=== PATIENT | female | born 1950 | race Caucasian/White ===

== ENCOUNTER 2019-03-31 08:27 | Inpatient (IN) | payer MEDICAID, MEDICARE ==
[~2019-03-31] VITALS: Ht 170.2 cm; Wt 72.7 kg
--- NOTE | 2019-03-31 08:56 | NUR ---
PT HAD BEDBUGS IN HER HOUSE AND HAD IT SPRAYED, NO VISIBLE BED BUGS OR ANY BUG VISUALIZED ON PT OR HER CLOTHES, EMS REPORTS PT HAS BITES AND RED PREM/BITES VISUALIZED BY RN, RADHA OLVIER CONTACTED AND NO NEED TO HAVE ECOLAB IF NO VISIBLE BEDBUGS, WILL NOTIFY EVS PRECAUTION, CAUTION CART PLACED OUTSIDE PT ROOM.
--- NOTE | 2019-03-31 09:47 | NUR ---
CALLED LIZZY TA [facility] WORKER [phone] LEFT MESSAGE
--- NOTE | 2019-03-31 10:08 | NUR ---
LIZZY PT [facility] WORKER STATES SHE NEEDS TO GET ACCESS TO A LOWER CAR AND WILL COME GET PT IN APPROX 30-45 MIN
[2019-03-31] MEDS ORDERED: MYCOL30CR TP (10:16)
[2019-03-31] MEDS ORDERED: acetaminophen 325mg tablet PO ONE (11:10)
--- NOTE | 2019-03-31 11:27 | NUR ---
PT [facility] WORKER LIZZY AT BEDSIDE, DISCUSSED PT LIVING AND HOME CARE ASSIST SITUATION, PAGED SPECIAL EDUCATION ITINERANT TEACHER TO CONSULT.
--- NOTE | 2019-03-31 11:29 | NUR ---
JANEY WITH SOCIAL SERVICE TO COME EVALUATE PT.
[2019-03-31] MEDS ORDERED: LORazepam 1 MG tablet PO ONE (11:30)
[2019-03-31] MEDS ORDERED: ondansetron 4mg rapidly disintigrating tab PO ONE (11:30)
--- NOTE | 2019-03-31 11:39 | NUR ---
MELODY WITH INFECTION CONTROL EVALUATED THE ONE BUG FOUND ON [facility] FOR EVALATION. PT 2 PERSON ASSISTED BACK INTO BED, PT LYING IN POSITION OF COMFORT
--- NOTE | 2019-03-31 12:44 | NUR ---
PT EVALUATION PER CASE MANAGEMENT, WILL PAGE WITH CM WHEN PT EVAL COMPLETE, ADMIT OR DISCHARGE HOME
--- NOTE | 2019-03-31 13:09 | NUR ---
PHYSICAL THERAPY AT BEDSIDE FOR EVALUATION NOW.
--- NOTE | 2019-03-31 13:21 | NUR ---
NAOMI PT FAMILY MEMBER CALLED BACK STATES SHE IS AT WORK W# [phone] AND C# [phone], PAGED SIZE MARKER THEY WERE TRYING TO CONTACT HER TO DISCUSS PT CASE.
--- NOTE | 2019-03-31 13:38 | NUR ---
CALLED CONTRERAS LOPEZ, SHE WILL CALL JEANINE NOW REGARDING ADMISSION CAN NOT DISCHARGE HOME SAFELY
[2019-03-31] MEDS ORDERED: potassium Cl 40MEQ/NS 500ml 500 ML IV PRN (13:55)
[2019-03-31] MEDS ORDERED: magnesium 2GM in 50ml NS 50 ML IV PRN (13:55)
[2019-03-31] MEDS ORDERED: magnesium Cl slow-release 64mg tablet PO PRN (13:55)
[2019-03-31] MEDS ORDERED: magnesium 4gm in 100ml NS 100 ML IV PRN (13:55)
[2019-03-31] MEDS ORDERED: potassium Cl 20 mEq SR tablet PO PRN ×2 (13:55)
[2019-03-31] MEDS ORDERED: ondansetron/PF 4mg/2ml inj IV PRN (13:55)
[2019-03-31] MEDS ORDERED: potassium CL 10mEq/100ml bag 100 ML IV PRN (13:55)
[2019-03-31] MEDS ORDERED: acetaminophen 325mg tablet PO PRN (13:55)
[2019-03-31] MEDS ORDERED: LORA10TA7 PO (14:01)
[2019-03-31] MEDS ORDERED: PHEN100C12 PO (14:01)
--- NOTE | 2019-03-31 14:28 | NUR ---
picc line nurse coming to start a line for patient.
--- NOTE | 2019-03-31 15:03 | NUR ---
picc line nurse in room working on getting iv for the pt.
--- NOTE | 2019-03-31 15:44 | NUR ---
REVIEWED PT CHART WITH HEIKE OCASIO, NO NEED FROM ED PERSPECTIVE FOR LABS, MORNING LABS TO BE DRAWN FROM PT EXTENDED LINE THAT WAS PLACED BY PICC NURSE, WILL RELAY INFO TO LEE PANDEY RECEIVING PT ON ORTHO/NEURO PT TO BE IN BED 4015A, WAITING CALL BACK FROM RN TO GIVE SBAR REPORT
--- NOTE | 2019-03-31 15:50 | NUR ---
PICC NURSE PLACED EXTENDED LINE IN RIGHT UPPER ARM
--- NOTE | 2019-03-31 16:03 | NUR ---
CALLED DR GROVER INFORMED OF YEAST INFECTION UNDER LEFT BREAST, DR GROVER TO COME EVALUATE PT, JENNAE SBAR REPORT TO LEE BUT PT WILL BE MOVED TO ANOTHER ROOM
--- NOTE | 2019-03-31 16:06 | NUR ---
[facility] HOSPITALIST AT BEDSIDE FOR EVALUATION NOW.
--- NOTE | 2019-03-31 16:13 | NUR ---
PT IS GOING TO BED 4006A, PATIENT COORDINATOR UPDATED, REGISTRATION NOTIFIED PT GOING TO FLOOR
[2019-03-31 16:49] VITALS: BP 115/66
[2019-03-31] MEDS: docusate sod 100mg capsule PO SCH (19:59)
--- NOTE | 2019-03-31 21:34 | NUR ---
Patient in room ORTHO 4006. I have received report from KATHERIN Gudino and had the opportunity to ask questions and assume patient care. Addendum: 03/31/19 at 2135 by Alivia Horvath RN Amended: Links added.
[2019-03-31 23:06] VITALS: BP 110/63
--- NOTE | 2019-04-01 06:32 | NUR ---
Problems reprioritized. Patient report given, questions answered & plan of care reviewed with KATHERIN Barrios. Addendum: 04/01/19 at 0632 by Alivia Horvath RN Amended: Links added.
[2019-04-01] MEDS: docusate sod 100mg capsule PO SCH ×2 (08:00→19:00)
[2019-04-01] MEDS: K and/or MAG REPLACEMENT MC SCH (08:00)
[2019-04-01 09:00] LABS: BASOPHILS # (AUTO) 0.1 X10'3 (0-0.2); EOSINOPHILS # (AUTO) 0.2 X10'3 (0-0.9); HEMOGLOBIN 13.6 g/dl (12.0-16.0); MEAN PLATELET VOLUME 8.8 FL (7.4-10.4); MONOCYTES # (AUTO) 0.6 X10'3 (0-0.9); NEUTROPHILS # (AUTO) 5.8 X10'3 (1.8-7.7); RED CELL DISTRIBUTION WIDTH 13.2 % (11.5-14.5); WHITE BLOOD COUNT 7.7 X10'3 (4.5-11.0)
[2019-04-01 09:01] LABS: EOSINOPHILS % (AUTO) 2.4 % (0-6); HEMATOCRIT 40.4 % (35.0-45.0); LYMPHOCYTES # (AUTO) 0.9 X10'3 (1.1-4.8); LYMPHOCYTES % (AUTO) 11.9 % (21-51); MEAN CORPUSCULAR HEMOGLOBIN 31.3 PG (27.0-31.0); MEAN CORPUSCULAR HGB CONC 33.7 g/dL (33.0-36.5); MEAN CORPUSCULAR VOLUME 92.8 FL (78-98); MONOCYTES % (AUTO) 8.4 % (2-12); NEUTROPHILS % (AUTO) 76.3 % (42-75); PLATELET COUNT 207 X10'3 (140-440); RED BLOOD COUNT 4.36 X10'6 (4.20-5.60)
[2019-04-01 09:13] LABS: ALBUMIN 3.2 G/DL (3.4-5.0); ANION GAP 7 (8-16); BLOOD UREA NITROGEN 10 MG/DL (7-18); BUN/CREATININE RATIO 17.2 (6.6-38.0); CALCIUM 8.6 MG/DL (8.5-10.1); CHLORIDE 105 MMOL/L (99-107); CREATININE 0.58 MG/DL (0.40-0.90); GLUCOSE 169 MG/DL (70-104); PHENYTOIN (DILANTIN) 4.4 UG/ML (10.0-20.0); POTASSIUM 3.7 MMOL/L (3.5-5.1); SODIUM 137 MMOL/L (135-145); TOTAL CARBON DIOXIDE 25.2 MMOL/L (24-32); eGFR > 90 ML/MIN
[2019-04-01] MEDS: acetaminophen 325mg tablet PO PRN (16:39)
[2019-04-01 18:00] VITALS: BP 112/55
--- NOTE | 2019-04-01 18:05 | NUR ---
Patient in room ORTHO 4006. I have received report from Sophie PANDEY and had the opportunity to ask questions and assume patient care.
[2019-04-01 21:00] VITALS: BP 127/62
[2019-04-01] MEDS: phenytoin sod ER 100mg capsule PO SCH (21:21)
[2019-04-02 06:00] VITALS: BP 127/75
--- NOTE | 2019-04-02 06:08 | NUR ---
RECEIVED REPORT FROM KATHERIN SARABIA
[2019-04-02 06:22] LABS: BASOPHILS # (AUTO) 0.1 X10'3 (0-0.2); BASOPHILS % (AUTO) 1.2 % (0-1); EOSINOPHILS # (AUTO) 0.3 X10'3 (0-0.9); EOSINOPHILS % (AUTO) 5.2 % (0-6); HEMATOCRIT 38.9 % (35.0-45.0); HEMOGLOBIN 13.4 g/dl (12.0-16.0); LYMPHOCYTES # (AUTO) 1.4 X10'3 (1.1-4.8); LYMPHOCYTES % (AUTO) 22.9 % (21-51); MEAN CORPUSCULAR HEMOGLOBIN 31.7 PG (27.0-31.0); MEAN CORPUSCULAR HGB CONC 34.3 g/dL (33.0-36.5); MEAN CORPUSCULAR VOLUME 92.3 FL (78-98); MEAN PLATELET VOLUME 8.8 FL (7.4-10.4); MONOCYTES # (AUTO) 0.6 X10'3 (0-0.9); MONOCYTES % (AUTO) 9.4 % (2-12); NEUTROPHILS # (AUTO) 3.7 X10'3 (1.8-7.7); NEUTROPHILS % (AUTO) 61.3 % (42-75); PLATELET COUNT 186 X10'3 (140-440); RED BLOOD COUNT 4.22 X10'6 (4.20-5.60)
--- NOTE | 2019-04-02 06:27 | NUR ---
Problems reprioritized. Patient report given, questions answered & plan of care reviewed with Fariba PANDEY.
[2019-04-02 06:42] LABS: ANION GAP 8 (8-16); BLOOD UREA NITROGEN 10 MG/DL (7-18); BUN/CREATININE RATIO 18.2 (6.6-38.0); CALCIUM 8.3 MG/DL (8.5-10.1); CHLORIDE 106 MMOL/L (99-107); CREATININE 0.55 MG/DL (0.40-0.90); GLUCOSE 146 MG/DL (70-104); MAGNESIUM 2.1 MG/DL (1.5-2.4); SODIUM 140 MMOL/L (135-145); TOTAL CARBON DIOXIDE 25.7 MMOL/L (24-32); eGFR > 90 ML/MIN
[2019-04-02] MEDS ORDERED: Permethrin Cream 60gm TP ONE (07:35)
[2019-04-02] MEDS ORDERED: Permethrin 1% 59ml topical rinse TP ONE (07:35)
[2019-04-02] MEDS: K and/or MAG REPLACEMENT MC SCH (08:00)
[2019-04-02] MEDS: Ivermectin 3mg tablet PO SCH (08:23)
[2019-04-02] MEDS: nystatin 15 GM powder TP SCH ×3 (08:23→20:32)
[2019-04-02] MEDS: docusate sod 100mg capsule PO SCH ×2 (08:23→20:30)
[2019-04-02] MEDS: acetaminophen 325mg tablet PO PRN (09:36)
[2019-04-02 10:00] VITALS: BP 127/82
[2019-04-02 18:00] VITALS: BP 119/77
--- NOTE | 2019-04-02 18:25 | NUR ---
gave report to alonzo patricia
[2019-04-02] MEDS ORDERED: docusate sod 100mg capsule PO SCH (20:00)
[2019-04-02] MEDS: phenytoin sod ER 100mg capsule PO SCH (20:31)
[2019-04-02] MEDS: polyethylene glycol 3350 17gm powd pack PO SCH (20:32)
[2019-04-02 22:00] VITALS: BP 126/68
[2019-04-03 06:00] VITALS: BP 137/87
[2019-04-03 06:19] LABS: BASOPHILS # (AUTO) 0.1 X10'3 (0-0.2); BASOPHILS % (AUTO) 1.2 % (0-1); EOSINOPHILS # (AUTO) 0.3 X10'3 (0-0.9); EOSINOPHILS % (AUTO) 5.9 % (0-6); HEMATOCRIT 41.2 % (35.0-45.0); HEMOGLOBIN 14.2 g/dl (12.0-16.0); LYMPHOCYTES # (AUTO) 1.1 X10'3 (1.1-4.8); LYMPHOCYTES % (AUTO) 20.4 % (21-51); MEAN CORPUSCULAR HEMOGLOBIN 31.9 PG (27.0-31.0); MEAN CORPUSCULAR HGB CONC 34.5 g/dL (33.0-36.5); MEAN CORPUSCULAR VOLUME 92.6 FL (78-98); MEAN PLATELET VOLUME 8.5 FL (7.4-10.4); MONOCYTES # (AUTO) 0.5 X10'3 (0-0.9); MONOCYTES % (AUTO) 9.8 % (2-12); NEUTROPHILS # (AUTO) 3.5 X10'3 (1.8-7.7); NEUTROPHILS % (AUTO) 62.7 % (42-75); PLATELET COUNT 222 X10'3 (140-440); RED BLOOD COUNT 4.45 X10'6 (4.20-5.60); RED CELL DISTRIBUTION WIDTH 13.1 % (11.5-14.5); WHITE BLOOD COUNT 5.6 X10'3 (4.5-11.0)
--- NOTE | 2019-04-03 06:35 | NUR ---
Patient in room ORTHO 4006. I have received report from Erendira PANDEY and had the opportunity to ask questions and assume patient care.
[2019-04-03 06:42] LABS: ALBUMIN 3.1 G/DL (3.4-5.0); ANION GAP 7 (8-16); BLOOD UREA NITROGEN 9 MG/DL (7-18); CALCIUM 9.1 MG/DL (8.5-10.1); CHLORIDE 105 MMOL/L (99-107); GLUCOSE 103 MG/DL (70-104); MAGNESIUM 2.2 MG/DL (1.5-2.4); POTASSIUM 4.5 MMOL/L (3.5-5.1); SODIUM 138 MMOL/L (135-145); TOTAL CARBON DIOXIDE 26.3 MMOL/L (24-32); eGFR > 90 ML/MIN
[2019-04-03] MEDS: K and/or MAG REPLACEMENT MC SCH (08:00)
[2019-04-03] MEDS: docusate sod 100mg capsule PO SCH ×2 (08:36→20:16)
[2019-04-03] MEDS: nystatin 15 GM powder TP SCH ×3 (08:37→20:18)
[2019-04-03 10:00] VITALS: BP 136/76
[2019-04-03 18:00] VITALS: BP 118/63
--- NOTE | 2019-04-03 18:06 | NUR ---
Problems reprioritized. Patient report given, questions answered & plan of care reviewed with Erendira PANDEY.
[2019-04-03] MEDS: polyethylene glycol 3350 17gm powd pack PO SCH (20:16)
[2019-04-03] MEDS: phenytoin sod ER 100mg capsule PO SCH (20:16)
[2019-04-03 22:00] VITALS: BP 118/65
[2019-04-04] MEDS: acetaminophen 325mg tablet PO PRN (05:01)
[2019-04-04 06:00] VITALS: BP 106/63
[2019-04-04 06:00] LABS: BASOPHILS # (AUTO) 0.1 X10'3 (0-0.2); EOSINOPHILS # (AUTO) 0.3 X10'3 (0-0.9); HEMOGLOBIN 13.1 g/dl (12.0-16.0); MEAN CORPUSCULAR HEMOGLOBIN 31.8 PG (27.0-31.0); MONOCYTES # (AUTO) 0.6 X10'3 (0-0.9); RED BLOOD COUNT 4.11 X10'6 (4.20-5.60); RED CELL DISTRIBUTION WIDTH 13.4 % (11.5-14.5)
[2019-04-04 06:03] LABS: BASOPHILS % (AUTO) 2.3 % (0-1); EOSINOPHILS % (AUTO) 6.2 % (0-6); HEMATOCRIT 38.9 % (35.0-45.0); LYMPHOCYTES # (AUTO) 1.4 X10'3 (1.1-4.8); LYMPHOCYTES % (AUTO) 27.7 % (21-51); MEAN CORPUSCULAR HGB CONC 33.6 g/dL (33.0-36.5); MEAN CORPUSCULAR VOLUME 94.6 FL (78-98); MEAN PLATELET VOLUME 8.6 FL (7.4-10.4); NEUTROPHILS # (AUTO) 2.7 X10'3 (1.8-7.7); NEUTROPHILS % (AUTO) 52.8 % (42-75); PLATELET COUNT 210 X10'3 (140-440); WHITE BLOOD COUNT 5.2 X10'3 (4.5-11.0)
--- NOTE | 2019-04-04 06:20 | NUR ---
Problems reprioritized. Patient report given, questions answered & plan of care reviewed with Екатерина PANDEY.
--- NOTE | 2019-04-04 06:27 | NUR ---
Patient in room ORTHO 4006. I have received report from Erendira PANDEY and had the opportunity to ask questions and assume patient care.
[2019-04-04 06:32] LABS: ALBUMIN 2.8 G/DL (3.4-5.0); ANION GAP 8 (8-16); BLOOD UREA NITROGEN 20 MG/DL (7-18); BUN/CREATININE RATIO 30.8 (6.6-38.0); CHLORIDE 103 MMOL/L (99-107); CREATININE 0.65 MG/DL (0.40-0.90); GLUCOSE 142 MG/DL (70-104); MAGNESIUM 2.1 MG/DL (1.5-2.4); POTASSIUM 4.5 MMOL/L (3.5-5.1); SODIUM 135 MMOL/L (135-145); TOTAL CARBON DIOXIDE 23.9 MMOL/L (24-32); eGFR 90 ML/MIN
[2019-04-04] MEDS: docusate sod 100mg capsule PO SCH ×2 (08:00→21:01)
[2019-04-04] MEDS: K and/or MAG REPLACEMENT MC SCH (08:00)
[2019-04-04] MEDS: nystatin 15 GM powder TP SCH ×3 (08:14→21:01)
[2019-04-04 10:00] VITALS: BP 108/57
[2019-04-04 18:00] VITALS: BP 136/78
--- NOTE | 2019-04-04 18:07 | NUR ---
Problems reprioritized. Patient report given, questions answered & plan of care reviewed with Pat RN.
[2019-04-04] MEDS: phenytoin sod ER 100mg capsule PO SCH (21:00)
[2019-04-04] MEDS: polyethylene glycol 3350 17gm powd pack PO SCH (21:00)
[2019-04-04 22:30] VITALS: BP 127/67
[2019-04-05 06:00] VITALS: BP 103/69
[2019-04-05 06:25] LABS: BASOPHILS # (AUTO) 0.1 X10'3 (0-0.2); EOSINOPHILS # (AUTO) 0.3 X10'3 (0-0.9); LYMPHOCYTES # (AUTO) 1.4 X10'3 (1.1-4.8); MEAN CORPUSCULAR VOLUME 93.5 FL (78-98); MONOCYTES # (AUTO) 0.5 X10'3 (0-0.9); NEUTROPHILS # (AUTO) 2.7 X10'3 (1.8-7.7)
[2019-04-05 06:29] LABS: BASOPHILS % (AUTO) 1.8 % (0-1); EOSINOPHILS % (AUTO) 6.9 % (0-6); HEMATOCRIT 39.9 % (35.0-45.0); HEMOGLOBIN 13.5 g/dl (12.0-16.0); LYMPHOCYTES % (AUTO) 28.1 % (21-51); MEAN CORPUSCULAR HEMOGLOBIN 31.5 PG (27.0-31.0); MEAN CORPUSCULAR HGB CONC 33.7 g/dL (33.0-36.5); MEAN PLATELET VOLUME 8.5 FL (7.4-10.4); MONOCYTES % (AUTO) 9.3 % (2-12); NEUTROPHILS % (AUTO) 53.9 % (42-75); PLATELET COUNT 242 X10'3 (140-440); RED BLOOD COUNT 4.27 X10'6 (4.20-5.60); RED CELL DISTRIBUTION WIDTH 13.3 % (11.5-14.5)
[2019-04-05 06:31] LABS: ANION GAP 6 (8-16); BLOOD UREA NITROGEN 14 MG/DL (7-18); BUN/CREATININE RATIO 23.3 (6.6-38.0); CALCIUM 9.3 MG/DL (8.5-10.1); CHLORIDE 103 MMOL/L (99-107); GLUCOSE 139 MG/DL (70-104); MAGNESIUM 2.2 MG/DL (1.5-2.4); POTASSIUM 4.4 MMOL/L (3.5-5.1); SODIUM 135 MMOL/L (135-145); TOTAL CARBON DIOXIDE 26.3 MMOL/L (24-32); eGFR > 90 ML/MIN
--- NOTE | 2019-04-05 06:42 | NUR ---
Received report from Dipti PANDEY
[2019-04-05] MEDS: docusate sod 100mg capsule PO SCH ×2 (08:00→19:46)
[2019-04-05] MEDS: K and/or MAG REPLACEMENT MC SCH (08:00)
[2019-04-05] MEDS: nystatin 15 GM powder TP SCH ×3 (08:24→20:28)
[2019-04-05 08:49] VITALS: BP 103/69
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
[2019-04-05 18:30] VITALS: BP 125/60
[2019-04-05] MEDS: polyethylene glycol 3350 17gm powd pack PO SCH (20:26)
[2019-04-05] MEDS: phenytoin sod ER 100mg capsule PO SCH (20:28)
[2019-04-05 22:00] VITALS: BP 108/72
--- NOTE | 2019-04-06 06:27 | NUR ---
Received report from Devin PANDEY
--- NOTE | 2019-04-06 06:31 | NUR ---
Problems reprioritized. Patient report given, questions answered & plan of care reviewed with SINDHU. Addendum: 04/06/19 at 0632 by Adalberto Chapin RN Amended: Links added.
[2019-04-06 06:32] VITALS: BP 116/63
[2019-04-06] MEDS: docusate sod 100mg capsule PO SCH ×2 (07:37→20:06)
[2019-04-06] MEDS: K and/or MAG REPLACEMENT MC SCH (08:00)
[2019-04-06] MEDS: nystatin 15 GM powder TP SCH ×3 (08:06→20:06)
[2019-04-06 10:26] VITALS: BP 103/60
[2019-04-06 18:00] VITALS: BP 110/60
[2019-04-06] MEDS: phenytoin sod ER 100mg capsule PO SCH (20:05)
[2019-04-06] MEDS: polyethylene glycol 3350 17gm powd pack PO SCH (20:06)
[2019-04-06 21:44] VITALS: BP 110/72
[2019-04-07 05:00] VITALS: BP 115/62
[2019-04-07] MEDS: K and/or MAG REPLACEMENT MC SCH (08:00)
[2019-04-07] MEDS: nystatin 15 GM powder TP SCH ×3 (09:55→20:40)
[2019-04-07] MEDS: docusate sod 100mg capsule PO SCH ×2 (09:55→20:39)
[2019-04-07 10:00] VITALS: BP 105/66
--- NOTE | 2019-04-07 17:56 | NUR ---
VS stable throughout the day. Pt out of bed and ambulated this shift. Had large BM. Awaiting another treatment for lice before discharge/transfer. CM currently looking for placement.
[2019-04-07 18:00] VITALS: BP 124/74
--- NOTE | 2019-04-07 18:26 | NUR ---
Problems reprioritized. Patient report given, questions answered & plan of care reviewed with KATHERIN Wade.
[2019-04-07] MEDS: phenytoin sod ER 100mg capsule PO SCH (20:40)
[2019-04-07] MEDS: polyethylene glycol 3350 17gm powd pack PO SCH (20:40)
[2019-04-07 22:00] VITALS: BP 112/68
[2019-04-07] MEDS: acetaminophen 325mg tablet PO PRN (23:29)
--- NOTE | 2019-04-08 06:35 | NUR ---
Patient in room ORTHO 4006. I have received report from Sheri PANDEY and had the opportunity to ask questions and assume patient care.
[2019-04-08 07:09] VITALS: BP 138/71
[2019-04-08] MEDS: K and/or MAG REPLACEMENT MC SCH (08:00)
[2019-04-08] MEDS: docusate sod 100mg capsule PO SCH ×2 (09:38→20:13)
[2019-04-08] MEDS: nystatin 15 GM powder TP SCH ×3 (09:38→20:16)
[2019-04-08 11:00] VITALS: BP 107/57
[2019-04-08] MEDS ORDERED: Permethrin Cream 60gm TP ONE (13:45)
[2019-04-08] MEDS ORDERED: Permethrin 1% 59ml topical rinse TP ONE (13:45)
--- NOTE | 2019-04-08 17:42 | NUR ---
Hair washed with lice cream and rinsed after 10 minutes. Body covered with scabies/bed bug cream at 1700. To be removed at 0500 7/4. New gown, socks, and mesh panties placed on pt. PICC line dressing change.
[2019-04-08 18:00] VITALS: BP 133/59
--- NOTE | 2019-04-08 18:18 | NUR ---
Problems reprioritized. Patient report given, questions answered & plan of care reviewed with Erendira PANDEY.
--- NOTE | 2019-04-08 18:20 | NUR ---
Patient in room ORTHO 4006. I have received report from Clyde PANDEY and had the opportunity to ask questions and assume patient care.
[2019-04-08] MEDS: phenytoin sod ER 100mg capsule PO SCH (20:13)
[2019-04-08] MEDS: polyethylene glycol 3350 17gm powd pack PO SCH (20:13)
[2019-04-08 22:00] VITALS: BP 106/57
[2019-04-09 06:00] VITALS: BP 103/62
--- NOTE | 2019-04-09 06:20 | NUR ---
Problems reprioritized. Patient report given, questions answered & plan of care reviewed with Tiffanie PANDEY. Addendum: 04/10/19 at 0632 by Erendira Glass RN . 04/10/19
--- NOTE | 2019-04-09 06:35 | NUR ---
Patient report given, questions answered & plan of care reviewed with Tiffanie PANDEY.
[2019-04-09] MEDS: docusate sod 100mg capsule PO SCH ×2 (07:39→20:45)
[2019-04-09] MEDS: Ivermectin 3mg tablet PO SCH (07:39)
[2019-04-09] MEDS: nystatin 15 GM powder TP SCH ×3 (07:58→20:45)
[2019-04-09] MEDS: K and/or MAG REPLACEMENT MC SCH (08:00)
[2019-04-09 10:00] VITALS: BP 116/62
--- NOTE | 2019-04-09 14:45 | NUR ---
PAGER ID: [phone] MESSAGE: Tiffanie [phone] re Jolie Jimenez in [phone]- can I order some eucerine for her? She has dry itchy skin
[2019-04-09 17:00] VITALS: BP 112/62
--- NOTE | 2019-04-09 18:20 | NUR ---
Patient in room ORTHO 4006. I have received report from Tiffanie PANDEY and had the opportunity to ask questions and assume patient care.
[2019-04-09] MEDS: polyethylene glycol 3350 17gm powd pack PO SCH (20:45)
[2019-04-09] MEDS: phenytoin sod ER 100mg capsule PO SCH (20:45)
[2019-04-09 22:00] VITALS: BP 112/67
[2019-04-10 06:00] VITALS: BP 115/61
[2019-04-10] MEDS: emollient combination-Eucerin 250 ML LOTION TP SCH (08:00)
[2019-04-10] MEDS: K and/or MAG REPLACEMENT MC SCH (08:00)
[2019-04-10] MEDS: nystatin 15 GM powder TP SCH ×3 (08:30→20:21)
[2019-04-10] MEDS: docusate sod 100mg capsule PO SCH ×2 (08:30→20:04)
[2019-04-10 10:00] VITALS: BP 117/65
--- NOTE | 2019-04-10 12:55 | NUR ---
Per Jameson in ID, ok to take pt out of isolation since she has had 2 topical treatments and 2 oral treatments. No sign of any insects. Pt still has rash that is itchy at times but per ID this may not have been scabies since she has been treated already. She was showered and placed into a clean room, all belongings including her shoes were inspected and placed into the clean room.
[2019-04-10 18:00] VITALS: BP 110/60
--- NOTE | 2019-04-10 18:10 | NUR ---
Patient in room ORTHO 4007. I have received report from Tiffanie PANDEY and had the opportunity to ask questions and assume patient care.
[2019-04-10] MEDS: phenytoin sod ER 100mg capsule PO SCH (20:04)
[2019-04-10] MEDS: polyethylene glycol 3350 17gm powd pack PO SCH (20:09)
[2019-04-10 22:00] VITALS: BP 124/59
[2019-04-11 06:00] VITALS: BP 126/54
--- NOTE | 2019-04-11 06:05 | NUR ---
Problems reprioritized. Patient report given, questions answered & plan of care reviewed with Tiffanie PANDEY.
[2019-04-11] MEDS: K and/or MAG REPLACEMENT MC SCH (08:00)
[2019-04-11] MEDS: nystatin 15 GM powder TP SCH ×3 (08:56→20:16)
[2019-04-11] MEDS: docusate sod 100mg capsule PO SCH ×2 (08:56→20:10)
[2019-04-11] MEDS: emollient combination-Eucerin 250 ML LOTION TP SCH (08:56)
[2019-04-11 10:00] VITALS: BP 110/69
--- NOTE | 2019-04-11 10:00 | NUR ---
[facility] here to treat [id number]
--- NOTE | 2019-04-11 11:45 | NUR ---
Reassessment: Pt continues on regular diet with documented 75-100% PO intake meeting nutrient needs. LBM 04/10. Per MD notes pt awaiting placement. No nutrition diagnosis at this time. Will continue to follow. Rec: 1. continue regular diet 2. power pudding w/ lunches and routine bowel care for constipation 3. wt per rx Addendum: 04/11/19 at [address] Amended: Links added.
[2019-04-11 18:00] VITALS: BP 127/45
[2019-04-11] MEDS: polyethylene glycol 3350 17gm powd pack PO SCH (20:09)
[2019-04-11] MEDS: phenytoin sod ER 100mg capsule PO SCH (20:10)
[2019-04-11] MEDS: calamine LOTION TP PRN (20:16)
[2019-04-11] MEDS: diphenhydrAMINE 2%/zinc acetate cream TP SCH (21:00)
[2019-04-11 22:00] VITALS: BP 114/65
[2019-04-12] MEDS: acetaminophen 325mg tablet PO PRN (06:25)
[2019-04-12 06:59] VITALS: BP 96/46
[2019-04-12] MEDS: nystatin 15 GM powder TP SCH ×3 (08:00→20:07)
[2019-04-12] MEDS: K and/or MAG REPLACEMENT MC SCH (08:00)
[2019-04-12] MEDS: emollient combination-Eucerin 250 ML LOTION TP SCH (08:00)
[2019-04-12] MEDS: diphenhydrAMINE 2%/zinc acetate cream TP SCH ×3 (08:00→21:00)
[2019-04-12] MEDS: docusate sod 100mg capsule PO SCH ×2 (08:00→20:06)
[2019-04-12 10:38] VITALS: BP 97/57
[2019-04-12 18:00] VITALS: BP 112/60
[2019-04-12] MEDS: phenytoin sod ER 100mg capsule PO SCH (20:06)
[2019-04-12] MEDS: polyethylene glycol 3350 17gm powd pack PO SCH (21:00)
[2019-04-12 22:00] VITALS: BP 105/62
[2019-04-13] MEDS: acetaminophen 325mg tablet PO PRN (05:23)
[2019-04-13 06:00] VITALS: BP 107/53
[2019-04-13] MEDS: K and/or MAG REPLACEMENT MC SCH (08:00)
[2019-04-13] MEDS: emollient combination-Eucerin 250 ML LOTION TP SCH (08:00)
[2019-04-13] MEDS: nystatin 15 GM powder TP SCH ×3 (08:00→21:00)
[2019-04-13] MEDS: docusate sod 100mg capsule PO SCH ×2 (08:00→19:26)
[2019-04-13] MEDS: diphenhydrAMINE 2%/zinc acetate cream TP SCH ×3 (08:00→21:00)
[2019-04-13 09:30] VITALS: BP 99/63
[2019-04-13 18:00] VITALS: BP 113/66
--- NOTE | 2019-04-13 18:07 | NUR ---
Report to January RN
[2019-04-13] MEDS: phenytoin sod ER 100mg capsule PO SCH (19:26)
[2019-04-13] MEDS: polyethylene glycol 3350 17gm powd pack PO SCH (21:00)
[2019-04-13 22:00] VITALS: BP 94/52
[2019-04-14] MEDS: acetaminophen 325mg tablet PO PRN ×2 (05:25→23:56)
[2019-04-14 06:00] VITALS: BP 100/50
[2019-04-14] MEDS: emollient combination-Eucerin 250 ML LOTION TP SCH (08:00)
[2019-04-14] MEDS: diphenhydrAMINE 2%/zinc acetate cream TP SCH ×3 (08:00→20:36)
[2019-04-14] MEDS: K and/or MAG REPLACEMENT MC SCH (08:00)
[2019-04-14] MEDS: docusate sod 100mg capsule PO SCH ×2 (09:23→20:00)
[2019-04-14] MEDS: calamine LOTION TP PRN ×2 (09:25→20:27)
[2019-04-14] MEDS: nystatin 15 GM powder TP SCH ×3 (09:25→20:27)
[2019-04-14 10:00] VITALS: BP 112/70
--- NOTE | 2019-04-14 18:21 | NUR ---
Report to Johanny PANDEY
[2019-04-14 18:41] VITALS: BP 112/63
[2019-04-14] MEDS: phenytoin sod ER 100mg capsule PO SCH (20:27)
[2019-04-14] MEDS: polyethylene glycol 3350 17gm powd pack PO SCH (20:28)
[2019-04-14 22:00] VITALS: BP 106/55
[2019-04-15 06:00] VITALS: BP 101/64
--- NOTE | 2019-04-15 06:43 | NUR ---
report given to alonzo Hayes.
[2019-04-15] MEDS: K and/or MAG REPLACEMENT MC SCH (07:11)
[2019-04-15] MEDS: diphenhydrAMINE 2%/zinc acetate cream TP SCH ×3 (07:11→21:00)
[2019-04-15] MEDS: docusate sod 100mg capsule PO SCH ×2 (07:11→21:07)
[2019-04-15] MEDS: nystatin 15 GM powder TP SCH ×3 (07:12→21:08)
[2019-04-15] MEDS: emollient combination-Eucerin 250 ML LOTION TP SCH (08:00)
[2019-04-15 10:00] VITALS: BP 112/65
[2019-04-15 18:00] VITALS: BP 99/59
[2019-04-15] MEDS: polyethylene glycol 3350 17gm powd pack PO SCH (21:00)
[2019-04-15] MEDS: phenytoin sod ER 100mg capsule PO SCH (21:07)
[2019-04-15] MEDS: calamine LOTION TP PRN (21:08)
[2019-04-15 22:00] VITALS: BP 100/59
[2019-04-16] MEDS: acetaminophen 325mg tablet PO PRN (05:32)
[2019-04-16 06:00] VITALS: BP 95/55
--- NOTE | 2019-04-16 06:00 | NUR ---
Patient in room ORTHO 4007. I have received report from and had the opportunity to ask questions and assume patient care KATHERIN Orlando.
--- NOTE | 2019-04-16 06:35 | NUR ---
REPORT GIVEN TO KATHERIN TONEY.
[2019-04-16] MEDS: K and/or MAG REPLACEMENT MC SCH (08:00)
[2019-04-16] MEDS: docusate sod 100mg capsule PO SCH ×2 (08:11→20:00)
[2019-04-16] MEDS: nystatin 15 GM powder TP SCH ×3 (08:11→21:18)
[2019-04-16] MEDS: diphenhydrAMINE 2%/zinc acetate cream TP SCH ×3 (08:12→21:20)
[2019-04-16] MEDS: emollient combination-Eucerin 250 ML LOTION TP SCH (08:12)
[2019-04-16 10:00] VITALS: BP 99/59
[2019-04-16 18:00] VITALS: BP 117/69
--- NOTE | 2019-04-16 18:28 | NUR ---
Patient in room ORTHO 4007. I have received report from KATHERIN Valadez and had the opportunity to ask questions and assume patient care.
--- NOTE | 2019-04-16 18:35 | NUR ---
RECEIVED REPORT FROM KATHERIN TONEY. PATIENT IS AWAKE AND ALERT ON ROOM AIR, IN NO APPARENT DISTRESS. SITTING UP IN RECLINER, HAVING MEAL. CALL LIGHT AND ITEMS OF FREQUENT USE WITHIN REACH. WILL CONTINUE TO MONITOR.
[2019-04-16 21:00] VITALS: BP 96/55
[2019-04-16] MEDS: polyethylene glycol 3350 17gm powd pack PO SCH (21:00)
[2019-04-16] MEDS: phenytoin sod ER 100mg capsule PO SCH (21:17)
[2019-04-16] MEDS: calamine LOTION TP PRN (21:19)
[2019-04-17 06:00] VITALS: BP 100/57
--- NOTE | 2019-04-17 06:14 | NUR ---
I have reviewed and agree with all interventions, assessments performed and documented by KATHERIN King. Problems reprioritized. Patient report given, questions answered & plan of care reviewed with KATHERIN Foster.
--- NOTE | 2019-04-17 06:20 | NUR ---
Problems reprioritized. Patient report given, questions answered & plan of care reviewed with KATHERIN Foster.
--- NOTE | 2019-04-17 06:30 | NUR ---
Patient in room ORTHO 4007. I have received report from KATHERIN Marcano and had the opportunity to ask questions and assume patient care.
--- NOTE | 2019-04-17 06:50 | NUR ---
Patient in room ORTHO 4007. I have received report from KATHERIN Marcano and had the opportunity to ask questions and assume patient care.
[2019-04-17] MEDS: emollient combination-Eucerin 250 ML LOTION TP SCH (08:00)
[2019-04-17] MEDS: diphenhydrAMINE 2%/zinc acetate cream TP SCH ×2 (08:00→13:21)
[2019-04-17] MEDS: K and/or MAG REPLACEMENT MC SCH (08:00)
[2019-04-17] MEDS: nystatin 15 GM powder TP SCH ×2 (08:00→13:19)
[2019-04-17 10:00] VITALS: BP 113/64
[2019-04-17] MEDS ORDERED: COL100C PO (11:24)
[2019-04-17] MEDS ORDERED: CALA180L4 TP (11:25)
[2019-04-17] MEDS ORDERED: EMOL200L TP (11:25)
[2019-04-17] MEDS ORDERED: NYSPWD TP (11:25)
[2019-04-17] MEDS ORDERED: BENCRM TP (11:25)
--- NOTE | 2019-04-17 12:24 | NUR ---
I have received patient report from Kristin PANDEY
--- NOTE | 2019-04-17 12:25 | NUR ---
Problems reprioritized. Patient report given, questions answered & plan of care reviewed with KATHERIN Redman for continuation of care.
[2019-04-17] MEDS: docusate sod 100mg capsule PO SCH (12:50)
--- NOTE | 2019-04-17 14:30 | NUR ---
Patient prescriptions delivered by Nitesh Mcnulty's bedside. Patient taught all about her medications. [facility] worker came to pick her up. Home health arranged for patient via pillowcase maker.
== END 2019-04-17 14:30 | disposition home health service (06) | DRG 385 ==
LOC: ER 08:27 → OBSVTOIN 15:54 → ORTHO 4S 15:54 → INTOOBSV 15:54 → ORTHO 4S 16:23 → CMPBEDREQ 19:38 → OBSVTOIN 04-03 15:54 → ORTHO 4S 04-10 11:28
PROVIDERS: ADMIT Internal Medicine; ATTEND Hospitalist
DX: B37.2 Candidiasis of skin and nail (principal); I69.354 Hemiplegia and hemiparesis following cerebral infarction affecting left non-dominant side; G40.909 Epilepsy, unspecified, not intractable, without status epilepticus; K59.00 Constipation, unspecified; M25.552 Pain in left hip; M54.5 Low back pain; W18.30XA Fall on same level, unspecified, initial encounter; Z60.2 Problems related to living alone; R29.6 Repeated falls; W18.39XA Other fall on same level, initial encounter; Z20.7 Contact with and (suspected) exposure to pediculosis, acariasis and other infestations; Z87.820 Personal history of traumatic brain injury; Z88.5 Allergy status to narcotic agent; Z88.2 Allergy status to sulfonamides; Z88.0 Allergy status to penicillin; Z79.899 Other long term (current) drug therapy; Y93.89 Activity, other specified; Y92.89 Other specified places as the place of occurrence of the external cause; Y99.8 Other external cause status
CPT/HCPCS: 36415; 72100; 73502; 76937; 80048; 80185; 83735; 85025; 87081; 97110; 97116; 97161; 97162; 97164; 97530; 97535; 99285; G0378; J2405

== ENCOUNTER 2020-03-09 07:09 | Emergency (ER) | payer MEDICARE, MEDICAID ==
[~2020-03-09] VITALS: Ht 167.6 cm; Wt 56.8 kg
[~2020-03-09 07:09] MED LIST: PHEN100C12 PO
--- NOTE | 2020-03-09 07:47 | NUR ---
took pt's dentures out and placed in a cup in her purse
[2020-03-09] MEDS ORDERED: hydrocortisone acetate 25mg rectal suppository RC PRN (08:20)
[2020-03-09] MEDS ORDERED: HYDR25SU32 RC (08:20)
--- NOTE | 2020-03-09 08:20 | NUR ---
When patient discharged home, patient requested that we contact her [facility] worker, Nori, at [phone]. Adriane PANDEY aware.
--- NOTE | 2020-03-09 08:22 | NUR ---
Beef Boner in room with patient at this time.
--- NOTE | 2020-03-09 08:35 | NUR ---
LAB WORK DRAW BY BETTY
[2020-03-09 09:13] LABS: BASOPHILS % (AUTO) 1.1 % (0-1); EOSINOPHILS # (AUTO) 0.1 X10'3 (0-0.9); EOSINOPHILS % (AUTO) 1.7 % (0-6); HEMATOCRIT 41.1 % (35.0-45.0); HEMOGLOBIN 13.8 g/dl (12.0-16.0); LYMPHOCYTES # (AUTO) 1.3 X10'3 (1.1-4.8); LYMPHOCYTES % (AUTO) 27.9 % (21-51); MEAN CORPUSCULAR HEMOGLOBIN 30.7 PG (27.0-31.0); MEAN CORPUSCULAR HGB CONC 33.5 g/dL (33.0-36.5); MEAN CORPUSCULAR VOLUME 91.9 FL (78-98); MEAN PLATELET VOLUME 8.4 FL (7.4-10.4); MONOCYTES # (AUTO) 0.4 X10'3 (0-0.9); MONOCYTES % (AUTO) 8.7 % (2-12); NEUTROPHILS # (AUTO) 2.7 X10'3 (1.8-7.7); NEUTROPHILS % (AUTO) 60.6 % (42-75); PLATELET COUNT 226 X10'3 (140-440); RED BLOOD COUNT 4.47 X10'6 (4.20-5.60); RED CELL DISTRIBUTION WIDTH 13.4 % (11.5-14.5); WHITE BLOOD COUNT 4.5 X10'3 (4.5-11.0)
[2020-03-09 09:28] LABS: ALANINE AMINOTRANSFERASE 31 U/L (12-78); ALBUMIN 3.7 G/DL (3.4-5.0); ALKALINE PHOSPHATASE 163 IU/L (46-116); ANION GAP 7 (8-16); ASPARTATE AMINO TRANSFERASE 31 U/L (10-37); BILIRUBIN,TOTAL 0.3 MG/DL (0.1-1.0); BLOOD UREA NITROGEN 9 MG/DL (7-18); BUN/CREATININE RATIO 15.3 (6.6-38.0); CHLORIDE 110 MMOL/L (99-107); CREATININE 0.59 MG/DL (0.40-0.90); GLUCOSE 100 MG/DL (70-104); PHENYTOIN (DILANTIN) 17.7 UG/ML (10.0-20.0); POTASSIUM 3.8 MMOL/L (3.5-5.1); SODIUM 145 MMOL/L (135-145); TOTAL CARBON DIOXIDE 27.7 MMOL/L (24-32); TOTAL PROTEIN 7.3 G/DL (6.4-8.2); eGFR > 90 ML/MIN
[2020-03-09 09:31] VITALS: BP 130/75
--- NOTE | 2020-03-09 09:37 | NUR ---
left a message for Nori to arrange transportation back to her home. waiting on a response. pt sleeping in bed.
--- NOTE | 2020-03-09 09:58 | NUR ---
called the number for Nori again. still no answer. assisted pt up to bedside commode and changed her brief and put her pants back on.
--- NOTE | 2020-03-09 10:34 | NUR ---
Telephone call to Nori again at this time per patient request. No answer, will inform primary KATHERIN Forrest.
--- NOTE | 2020-03-09 10:52 | NUR ---
pt's family member Marita is going to come and take the pt back to her home.
== END 2020-03-09 11:08 | disposition home or self-care (01) ==
LOC: ER 07:10
DX: K64.4 Residual hemorrhoidal skin tags (principal); Z60.2 Problems related to living alone; Z88.5 Allergy status to narcotic agent; Z88.2 Allergy status to sulfonamides; Z88.0 Allergy status to penicillin; Z79.899 Other long term (current) drug therapy
CPT/HCPCS: 36415; 80053; 80185; 85025; 99284; J7999

== ENCOUNTER 2020-03-11 17:57 | Inpatient (IN) | payer MEDICARE, MEDICAID ==
[~2020-03-11] VITALS: Ht 157.5 cm; Wt 63.5 kg
[~2020-03-11 17:57] MED LIST changes: +HYDR25SU32 RC
--- NOTE | 2020-03-11 18:40 | NUR ---
PT REFUSED TO LET THE MEDIC START A LINE AND TOLD THE CHILD STUDY TEAM DIRECTOR THAT THEY COULDN'T DRAW HER BLOOD UNTIL SHE WAS IN A BED.
[2020-03-11 19:35] LABS: ALANINE AMINOTRANSFERASE 38 U/L (12-78); ALBUMIN 3.8 G/DL (3.4-5.0); ALKALINE PHOSPHATASE 165 IU/L (46-116); ANION GAP 7 (8-16); ASPARTATE AMINO TRANSFERASE 32 U/L (10-37); BILIRUBIN,TOTAL 0.2 MG/DL (0.1-1.0); BLOOD UREA NITROGEN 12 MG/DL (7-18); BUN/CREATININE RATIO 16.2 (6.6-38.0); CALCIUM 8.8 MG/DL (8.5-10.1); CHLORIDE 109 MMOL/L (99-107); CREATININE 0.74 MG/DL (0.40-0.90); GLUCOSE 104 MG/DL (70-104); POTASSIUM 4.2 MMOL/L (3.5-5.1); SODIUM 144 MMOL/L (135-145); TOTAL CARBON DIOXIDE 28.2 MMOL/L (24-32); TOTAL PROTEIN 7.8 G/DL (6.4-8.2); eGFR 77 ML/MIN
[2020-03-11 19:51] LABS: BASOPHILS # (AUTO) 0.1 X10'3 (0-0.2); BASOPHILS % (AUTO) 1.3 % (0-1); EOSINOPHILS # (AUTO) 0.2 X10'3 (0-0.9); EOSINOPHILS % (AUTO) 3.3 % (0-6); HEMATOCRIT 40.8 % (35.0-45.0); HEMOGLOBIN 13.9 g/dl (12.0-16.0); LYMPHOCYTES # (AUTO) 1.9 X10'3 (1.1-4.8); LYMPHOCYTES % (AUTO) 39.6 % (21-51); MEAN CORPUSCULAR VOLUME 91.1 FL (78-98); MEAN PLATELET VOLUME 8.5 FL (7.4-10.4); MONOCYTES # (AUTO) 0.5 X10'3 (0-0.9); MONOCYTES % (AUTO) 9.9 % (2-12); NEUTROPHILS # (AUTO) 2.2 X10'3 (1.8-7.7); NEUTROPHILS % (AUTO) 45.9 % (42-75); PLATELET COUNT 240 X10'3 (140-440); RED BLOOD COUNT 4.47 X10'6 (4.20-5.60); RED CELL DISTRIBUTION WIDTH 13.7 % (11.5-14.5); WHITE BLOOD COUNT 4.9 X10'3 (4.5-11.0)
[2020-03-11] MEDS ORDERED: normal saline 1000ML IV soln IVB ONE ×2 (20:50→23:05)
[2020-03-11 22:07] LABS: COLOR,URINE YELLOW (Yellow); GLUCOSE, URINE NEGATIVE (Neg); KETONES,URINE NEGATIVE (Neg); LEUKOCYTE ESTERASE ,URINE NEGATIVE (Neg); NITRITES, URINE NEGATIVE (Neg); OCCULT BLOOD,URINE TRACE-LYSED (Neg); PROTEIN,URINE NEGATIVE (Neg); UROBILINOGEN,URINE 0.2 E.U/dL (0.2-1.0)
[2020-03-11 22:13] LABS: UA COLLECTION TYPE URINAL
[2020-03-11 22:14] LABS: CLARITY,URINE SLIGHTLY CLOUDY (Clear)
[2020-03-11 22:15] LABS: BACTERIA,URINE 1+ /HPF (Neg); CAL OXALATE CRYSTALS FEW /HPF (NEGATIVE); RBC,URINE 0-2 /HPF (0-2); SQUAMOUS EPITHELIAL CELL,UR MANY /LPF (FEW); TRANSITIONAL EPI CELLS,URINE FEW /HPF; WBC,URINE 0-4 /HPF (0-4)
[2020-03-11 22:16] LABS: RENAL CELLS, URINE FEW /HPF
--- NOTE | 2020-03-11 22:18 | NUR ---
Call outs made to both Nori and Marita with no success. Pt. has no alternative contact information for both persons.
[2020-03-11] MEDS ORDERED: ondansetron 4mg rapidly disintigrating tab PO ONE (22:25)
[2020-03-11] MEDS ORDERED: magnesium 2GM in 50ml NS 50 ML IV PRN (23:10)
[2020-03-11] MEDS ORDERED: magnesium Cl slow-release 64mg tablet PO PRN (23:10)
[2020-03-11] MEDS ORDERED: HYDROcodone/acetaminophen 5mg/325mg tablet PO PRN (23:10)
[2020-03-11] MEDS ORDERED: potassium Cl 20 mEq SR tablet PO PRN ×2 (23:10)
[2020-03-11] MEDS ORDERED: potassium CL 10mEq/100ml bag 100 ML IV PRN ×2 (23:10)
[2020-03-11] MEDS ORDERED: HYDROcodone/acetaminophen 10/325mg tab PO PRN (23:10)
[2020-03-11] MEDS ORDERED: magnesium hydroxide 30ml (MOM) UD suspension PO PRN (23:10)
[2020-03-11] MEDS ORDERED: mag hydrox/Alum hydrox/simeth 30ml oral suspension PO PRN (23:10)
[2020-03-11] MEDS ORDERED: metoclopramide 5 mg/ml inj IV PRN (23:10)
[2020-03-11] MEDS ORDERED: acetaminophen 325mg tablet PO PRN ×2 (23:10)
[2020-03-11] MEDS ORDERED: magnesium 4gm in 100ml NS 100 ML IV PRN (23:10)
[2020-03-11] MEDS ORDERED: ondansetron/PF 4mg/2ml inj IV PRN (23:10)
[2020-03-11] MEDS ORDERED: OMEP-50 PO (23:27)
[2020-03-11] MEDS ORDERED: LORA10TA7 PO (23:27)
[2020-03-11] MEDS ORDERED: CHOL10002 PO (23:27)
[2020-03-11 23:51] LABS: PHENYTOIN (DILANTIN) 12.2 UG/ML (10.0-20.0)
[2020-03-12] MEDS: normal saline 1000ml 1,000 ML IV SCH ×3 (01:29→21:47)
--- NOTE | 2020-03-12 01:55 | NUR ---
RECEIVED REPORT FROM RN, PT BROUGHT TO ROOM 351 VIA GURNEY. PANDEY AT BEDSIDE ORIENTING PT TO ROOM AND ROUTINE. Addendum: 03/12/20 at 0323 by Osbaldo Martines RN Amended: Links added.
[2020-03-12 03:30] VITALS: BP 135/78
--- NOTE | 2020-03-12 03:30 | NUR ---
PT RESISTIVE TO CARE AT THIS TIME, STATES TIRED, DECLINED TO HAVE FULL ASSESSMENT, DECLINES TO HAVE PUPILS CHECKED AT THIS TIME. Addendum: 03/12/20 at 0444 by Osbaldo Martines RN Amended: Links added.
[2020-03-12 06:27] LABS: HEMATOCRIT 36.8 % (35.0-45.0); HEMOGLOBIN 12.5 g/dl (12.0-16.0); MEAN CORPUSCULAR HEMOGLOBIN 31.1 PG (27.0-31.0); MEAN CORPUSCULAR HGB CONC 33.9 g/dL (33.0-36.5); MEAN CORPUSCULAR VOLUME 91.6 FL (78-98); MEAN PLATELET VOLUME 8.3 FL (7.4-10.4); PLATELET COUNT 203 X10'3 (140-440); RED BLOOD COUNT 4.02 X10'6 (4.20-5.60); RED CELL DISTRIBUTION WIDTH 13.3 % (11.5-14.5)
--- NOTE | 2020-03-12 06:34 | NUR ---
Problems reprioritized. Patient report given, questions answered & plan of care reviewed with RN. Addendum: 03/12/20 at 0635 by Osbaldo Martines RN Amended: Links added.
--- NOTE | 2020-03-12 06:44 | NUR ---
Patient in room ABDIAZIZ 351. I have received report from Anaya PANDEY and had the opportunity to ask questions and assume patient care.
[2020-03-12 06:50] LABS: ALBUMIN 2.9 G/DL (3.4-5.0); ANION GAP 9 (8-16); BLOOD UREA NITROGEN 6 MG/DL (7-18); BUN/CREATININE RATIO 10.5 (6.6-38.0); CALCIUM 7.9 MG/DL (8.5-10.1); CHLORIDE 113 MMOL/L (99-107); CREATININE 0.57 MG/DL (0.40-0.90); GLUCOSE 89 MG/DL (70-104); PHOSPHORUS 3.1 MG/DL (2.3-4.5); POTASSIUM 3.4 MMOL/L (3.5-5.1); SODIUM 148 MMOL/L (135-145); TOTAL CARBON DIOXIDE 26.3 MMOL/L (24-32); eGFR > 90 ML/MIN
[2020-03-12 07:54] VITALS: BP 139/56
[2020-03-12] MEDS: enoxaparin 40mg/0.4ml syringe SUBCUT SCH ×2 (08:04→08:11)
[2020-03-12] MEDS: K and/or MAG REPLACEMENT MC SCH ×2 (08:12→20:00)
[2020-03-12 11:00] VITALS: BP 120/60
[2020-03-12] MEDS: loratadine 10mg tablet PO SCH (12:30)
[2020-03-12] MEDS ORDERED: phenytoin sod ER 100mg capsule PO ONE (12:40)
[2020-03-12 18:00] VITALS: BP 120/57
--- NOTE | 2020-03-12 18:23 | NUR ---
Problems reprioritized. Patient report given, questions answered & plan of care reviewed with Miryam PANDEY.
--- NOTE | 2020-03-12 18:30 | NUR ---
Patient in room ABDIAZIZ 351. I have received report from RN and had the opportunity to ask questions and assume patient care. Addendum: 03/12/20 at 1839 by Osbaldo Martines RN Amended: Links added.
--- NOTE | 2020-03-12 20:00 | NUR ---
Pt unable to sit or stand for orthostatic vs, refuses. Addendum: 03/13/20 at 0207 by Osbaldo Martines RN Amended: Links added.
[2020-03-12] MEDS: phenytoin sod ER 100mg capsule PO SCH (21:44)
[2020-03-13 00:42] VITALS: BP 120/57
[2020-03-13] MEDS: normal saline 1000ml 1,000 ML IV SCH ×3 (05:10→18:59)
--- NOTE | 2020-03-13 05:18 | NUR ---
REFUSES TO HAVE LABS DRAWN Addendum: 03/13/20 at 0518 by Osbaldo Martines RN Amended: Links added.
--- NOTE | 2020-03-13 06:44 | NUR ---
Problems reprioritized. Patient report given, questions answered & plan of care reviewed with KATHERIN MONTERROSO. Addendum: 03/13/20 at 0644 by Osbaldo Martines RN Amended: Links added.
--- NOTE | 2020-03-13 07:10 | NUR ---
Patient in room ABDIAZIZ 351. I have received report from Miryam PANDEY and had the opportunity to ask questions and assume patient care.
[2020-03-13] MEDS: loratadine 10mg tablet PO SCH (07:33)
[2020-03-13] MEDS: vitamin D (cholecalciferol) 1,000 unit tablet PO SCH (07:34)
[2020-03-13] MEDS: pantoprazole 40mg Tablet.DR PO SCH (07:34)
[2020-03-13] MEDS: enoxaparin 40mg/0.4ml syringe SUBCUT SCH (07:38)
[2020-03-13 08:00] VITALS: BP 130/72
[2020-03-13] MEDS: K and/or MAG REPLACEMENT MC SCH ×2 (08:00→19:02)
[2020-03-13 11:00] VITALS: BP 109/57
[2020-03-13 11:16] LABS: HEMATOCRIT 36.7 % (35.0-45.0); HEMOGLOBIN 12.4 g/dl (12.0-16.0); MEAN CORPUSCULAR HEMOGLOBIN 31.1 PG (27.0-31.0); MEAN CORPUSCULAR HGB CONC 33.9 g/dL (33.0-36.5); MEAN CORPUSCULAR VOLUME 91.8 FL (78-98); MEAN PLATELET VOLUME 8.7 FL (7.4-10.4); PLATELET COUNT 205 X10'3 (140-440); RED CELL DISTRIBUTION WIDTH 13.6 % (11.5-14.5); WHITE BLOOD COUNT 5.1 X10'3 (4.5-11.0)
[2020-03-13 11:28] LABS: ALBUMIN 2.8 G/DL (3.4-5.0); ANION GAP 7 (8-16); BLOOD UREA NITROGEN 10 MG/DL (7-18); BUN/CREATININE RATIO 15.9 (6.6-38.0); CALCIUM 8.1 MG/DL (8.5-10.1); CHLORIDE 111 MMOL/L (99-107); CREATININE 0.63 MG/DL (0.40-0.90); GLUCOSE 84 MG/DL (70-104); MAGNESIUM 1.9 MG/DL (1.5-2.4); PHOSPHORUS 3.2 MG/DL (2.3-4.5); POTASSIUM 3.6 MMOL/L (3.5-5.1); SODIUM 146 MMOL/L (135-145); TOTAL CARBON DIOXIDE 28.5 MMOL/L (24-32); eGFR > 90 ML/MIN
[2020-03-13 14:48] VITALS: BP_SYST 106; BP_SYST 126; BP_SYST 136; BP_DIAS 55; BP_DIAS 67
--- NOTE | 2020-03-13 18:12 | NUR ---
Problems reprioritized. Patient report given, questions answered & plan of care reviewed with irma PANDEY.
--- NOTE | 2020-03-13 18:49 | NUR ---
Patient in room ABDIAZIZ 351. I have received report from Shivam PANDEY and had the opportunity to ask questions and assume patient care. Pt sitting up in bed working on dinner. NS running @ 100. Pt has no signs of distress, will continue to monitor.
[2020-03-13 19:47] VITALS: BP 118/64
[2020-03-13] MEDS: phenytoin sod ER 100mg capsule PO SCH (21:16)
[2020-03-14 00:04] VITALS: BP 126/73
--- NOTE | 2020-03-14 06:40 | NUR ---
Problems reprioritized. Patient report given, questions answered & plan of care reviewed with Michelle PANDEY.
--- NOTE | 2020-03-14 06:51 | NUR ---
Patient in room ABDIAZIZ 351. I have received report from KATHERIN GARCIA and had the opportunity to ask questions and assume patient care.
[2020-03-14] MEDS: K and/or MAG REPLACEMENT MC SCH (07:08)
[2020-03-14 07:20] VITALS: BP 120/74
[2020-03-14 07:38] LABS: HEMATOCRIT 38.7 % (35.0-45.0); HEMOGLOBIN 13.1 g/dl (12.0-16.0); MEAN CORPUSCULAR HEMOGLOBIN 30.9 PG (27.0-31.0); MEAN CORPUSCULAR HGB CONC 33.8 g/dL (33.0-36.5); MEAN CORPUSCULAR VOLUME 91.4 FL (78-98); MEAN PLATELET VOLUME 8.4 FL (7.4-10.4); PLATELET COUNT 205 X10'3 (140-440); RED BLOOD COUNT 4.23 X10'6 (4.20-5.60); RED CELL DISTRIBUTION WIDTH 13.4 % (11.5-14.5)
[2020-03-14 07:54] LABS: ANION GAP 7 (8-16); BLOOD UREA NITROGEN 8 MG/DL (7-18); BUN/CREATININE RATIO 13.3 (6.6-38.0); CALCIUM 8.4 MG/DL (8.5-10.1); CHLORIDE 111 MMOL/L (99-107); GLUCOSE 84 MG/DL (70-104); PHOSPHORUS 3.4 MG/DL (2.3-4.5); POTASSIUM 3.9 MMOL/L (3.5-5.1); SODIUM 145 MMOL/L (135-145); TOTAL CARBON DIOXIDE 26.6 MMOL/L (24-32); eGFR > 90 ML/MIN
[2020-03-14] MEDS: enoxaparin 40mg/0.4ml syringe SUBCUT SCH (08:00)
[2020-03-14] MEDS: loratadine 10mg tablet PO SCH (08:02)
[2020-03-14] MEDS: pantoprazole 40mg Tablet.DR PO SCH (08:03)
[2020-03-14] MEDS: vitamin D (cholecalciferol) 1,000 unit tablet PO SCH (08:03)
[2020-03-14] MEDS: normal saline 1000ml 1,000 ML IV SCH (11:10)
--- NOTE | 2020-03-14 12:10 | NUR ---
LEFT MESSAGE FOR RICK TO CALL BACK REGARDING DC
[2020-03-14 12:14] VITALS: BP_SYST 121; BP_SYST 152; BP_SYST 158; BP_DIAS 73; BP_DIAS 91; BP_DIAS 93
--- NOTE | 2020-03-14 13:12 | NUR ---
DC INSTRUCTIONS GIVEN AND QUESTIONS ANSWERED. ASSISTED PT WITH DRESSING. REMOVED IV WITH NO COMPLICATIONS. WHEELED PT DOWN TO PRIVATE VEHICLE, FRIEND RICK MOREJON. PT IN STABLE CONDITION.
--- NOTE | 2020-03-17 10:22 | NUR ---
Case Management DC follow up: LM/VM post DC status, questions, concerns
== END 2020-03-14 12:49 | disposition home health service (06) | DRG 249 ==
LOC: ER 17:57 → ED HOLD 23:10 → SUR 3N 03-12 01:47
PROVIDERS: ADMIT Family Medicine; ATTEND Family Medicine
DX: A08.4 Viral intestinal infection, unspecified (principal); G93.89 Other specified disorders of brain; G40.909 Epilepsy, unspecified, not intractable, without status epilepticus; Z60.2 Problems related to living alone; Z87.820 Personal history of traumatic brain injury; Z88.5 Allergy status to narcotic agent; Z88.0 Allergy status to penicillin; Z88.2 Allergy status to sulfonamides
CPT/HCPCS: 36415; 70450; 71045; 80048; 80053; 80185; 81001; 83735; 84100; 84443; 84484; 85025; 85027; 87081; 93005; 97116; 97161; 97530; 99285; G0378; J1650; J7030

== ENCOUNTER 2020-06-15 14:30 | Emergency (ER) | payer MEDICARE, MEDICAID ==
[~2020-06-15] VITALS: Ht 165.1 cm; Wt 61.0 kg
[~2020-06-15 14:30] MED LIST changes: +CHOL10002 PO; -HYDR25SU32 RC; +LORA10TA7 PO; +OMEP-50 PO
[2020-06-15 14:43] VITALS: BP 131/8
[2020-06-15] MEDS ORDERED: iohexol 300mg/ml 100ml inj. ONE (17:03)
[2020-06-15 17:09] LABS: BASOPHILS # (AUTO) 0.1 X10'3 (0-0.2); BASOPHILS % (AUTO) 1.1 % (0-1); EOSINOPHILS # (AUTO) 0.1 X10'3 (0-0.9); EOSINOPHILS % (AUTO) 1.5 % (0-6); HEMOGLOBIN 14.6 g/dl (12.0-16.0); LYMPHOCYTES # (AUTO) 1.3 X10'3 (1.1-4.8); LYMPHOCYTES % (AUTO) 27.2 % (21-51); MEAN CORPUSCULAR HEMOGLOBIN 31.7 PG (27.0-31.0); MEAN CORPUSCULAR HGB CONC 33.9 g/dL (33.0-36.5); MEAN CORPUSCULAR VOLUME 93.4 FL (78-98); MEAN PLATELET VOLUME 8.3 FL (7.4-10.4); MONOCYTES # (AUTO) 0.4 X10'3 (0-0.9); NEUTROPHILS # (AUTO) 2.8 X10'3 (1.8-7.7); NEUTROPHILS % (AUTO) 61.2 % (42-75); PLATELET COUNT 241 X10'3 (140-440); RED BLOOD COUNT 4.61 X10'6 (4.20-5.60); WHITE BLOOD COUNT 4.6 X10'3 (4.5-11.0)
[2020-06-15 17:11] LABS: ALANINE AMINOTRANSFERASE 39 U/L (12-78); ALKALINE PHOSPHATASE 188 IU/L (46-116); ANION GAP 7 (8-16); ASPARTATE AMINO TRANSFERASE 29 U/L (10-37); BILIRUBIN,TOTAL 0.2 MG/DL (0.1-1.0); BLOOD UREA NITROGEN 10 MG/DL (7-18); BUN/CREATININE RATIO 14.3 (6.6-38.0); CALCIUM 9.1 MG/DL (8.5-10.1); CHLORIDE 105 MMOL/L (99-107); GLUCOSE 116 MG/DL (70-104); SODIUM 140 MMOL/L (135-145); TOTAL CARBON DIOXIDE 28.3 MMOL/L (24-32); eGFR 82 ML/MIN
--- NOTE | 2020-06-15 17:20 | NUR ---
PT TO CT
--- NOTE | 2020-06-15 18:52 | NUR ---
[facility] WORKER LIZZY [phone]. I CALLED AND LEFT A MESSAGE, FOR HER TO CALL THE ER BACK TO GIVE AMBROSIO A RIDE HOME.
[2020-06-15] MEDS ORDERED: DOCU100C40 PO (19:09)
== END 2020-06-15 19:19 | disposition home or self-care (01) ==
LOC: ER 14:30
DX: K92.1 Melena (principal); K80.80 Other cholelithiasis without obstruction; R10.84 Generalized abdominal pain; K62.5 Hemorrhage of anus and rectum; Z86.69 Personal history of other diseases of the nervous system and sense organs; Z60.2 Problems related to living alone; Z88.5 Allergy status to narcotic agent; Z88.0 Allergy status to penicillin; Z88.2 Allergy status to sulfonamides; Z79.899 Other long term (current) drug therapy
CPT/HCPCS: 36415; 74177; 80053; 85025; 99285; Q9967

== ENCOUNTER 2020-07-18 12:55 | Emergency (ER) | payer MEDICARE, MEDICAID ==
[~2020-07-18] VITALS: Ht 170.2 cm; Wt 72.7 kg
[~2020-07-18 12:55] MED LIST changes: +DOCU100C40 PO
[2020-07-18 13:04] VITALS: BP 149/81
--- NOTE | 2020-07-18 14:15 | NUR ---
Call to [facility] worker Leslye at this time per patient request [phone].
== END 2020-07-18 18:13 | disposition home or self-care (01) ==
LOC: ER 12:56
DX: M19.072 Primary osteoarthritis, left ankle and foot (principal); Z86.69 Personal history of other diseases of the nervous system and sense organs; Z88.5 Allergy status to narcotic agent; Z88.0 Allergy status to penicillin; Z88.2 Allergy status to sulfonamides; Z79.899 Other long term (current) drug therapy
CPT/HCPCS: 73610; 99284

== ENCOUNTER 2020-11-16 07:59 | Emergency (ER) | payer MEDICARE, MEDICAID ==
[~2020-11-16] VITALS: Ht 165.1 cm; Wt 76.0 kg
[~2020-11-16 07:59] MED LIST changes: +ASPI81TA52 PO; -DOCU100C40 PO; +PRAV80TA3 PO
--- NOTE | 2020-11-16 09:10 | NUR ---
x ray at bedside.
[2020-11-16 10:58] VITALS: BP 138/72
== END 2020-11-16 11:01 | disposition home or self-care (01) ==
LOC: ER 08:00
DX: R07.89 Other chest pain (principal); R07.81 Pleurodynia; Z86.69 Personal history of other diseases of the nervous system and sense organs; Z60.2 Problems related to living alone; Z88.5 Allergy status to narcotic agent; Z88.0 Allergy status to penicillin; Z88.2 Allergy status to sulfonamides; Z79.82 Long term (current) use of aspirin; Z79.899 Other long term (current) drug therapy
CPT/HCPCS: 71101; 93005; 99284

== ENCOUNTER 2021-04-13 15:05 | Emergency (ER) | payer MEDICARE, MEDICAID ==
[~2021-04-13] VITALS: Ht 167.6 cm; Wt 81.8 kg
[~2021-04-13 15:05] MED LIST changes: +CHOL-35 PO; -CHOL10002 PO
[2021-04-13 15:10] VITALS: BP 152/81
[2021-04-13] MEDS ORDERED: PRED20TA PO (15:13)
[2021-04-13] MEDS ORDERED: dexamethasone 4mg tablet PO ONE (15:15)
[2021-04-13] MEDS ORDERED: diphenhydrAMINE 25mg capsule PO ONE (15:15)
[2021-04-13] MEDS ORDERED: famotidine 20mg tablet PO ONE (15:15)
[2021-04-13] MEDS ORDERED: DOXY100C43 PO (15:16)
== END 2021-04-13 16:05 | disposition home or self-care (01) ==
LOC: ER 15:06
DX: R09.89 Other specified symptoms and signs involving the circulatory and respiratory systems (principal); T36.0X5A Adverse effect of penicillins, initial encounter; Z86.69 Personal history of other diseases of the nervous system and sense organs; Z60.2 Problems related to living alone; Z88.5 Allergy status to narcotic agent; Z88.2 Allergy status to sulfonamides; Z79.82 Long term (current) use of aspirin; Z79.2 Long term (current) use of antibiotics; Z79.899 Other long term (current) drug therapy; Y92.89 Other specified places as the place of occurrence of the external cause
CPT/HCPCS: 99284; Q0163

== ENCOUNTER 2021-04-17 02:54 | Emergency (ER) | payer MEDICARE, MEDICAID ==
[~2021-04-17] VITALS: Ht 165.1 cm; Wt 86.2 kg
[~2021-04-17 02:54] MED LIST changes: +DOXY100C43 PO; +PRED20TA PO
--- NOTE | 2021-04-17 03:52 | NUR ---
PT RESTING W/ EYES CLOSED. NO S/S OF ACUTE DISTRESS. VS WNL.
[2021-04-17] MEDS ORDERED: HYDR50TA65 PO (07:23)
[2021-04-17 07:44] VITALS: BP 106/53
--- NOTE | 2021-04-17 08:06 | NUR ---
PATIENT ASSISTED TO BSC FOR VOID AND BACK TO [facility]. PATIENT DRESSED AND READY FOR DC. DC INSTRUCTIONS GIVEN TO PATIENT WITH PRESCRIPTION. CONTACTING [facility] FOR TRANSPORTATION ARRANGEMENTS BACK TO FACILITY.
== END 2021-04-17 18:33 | disposition home or self-care (01) ==
LOC: ER 02:55
DX: L27.0 Generalized skin eruption due to drugs and medicaments taken internally (principal); T36.4X5A Adverse effect of tetracyclines, initial encounter; T38.0X5A Adverse effect of glucocorticoids and synthetic analogues, initial encounter; T45.0X5A Adverse effect of antiallergic and antiemetic drugs, initial encounter; F03.90 Unspecified dementia, unspecified severity, without behavioral disturbance, psychotic disturbance, mood disturbance, and anxiety; G40.909 Epilepsy, unspecified, not intractable, without status epilepticus; E78.00 Pure hypercholesterolemia, unspecified; K21.9 Gastro-esophageal reflux disease without esophagitis; R41.841 Cognitive communication deficit; Z88.0 Allergy status to penicillin; Z88.1 Allergy status to other antibiotic agents; Z88.2 Allergy status to sulfonamides; Z88.8 Allergy status to other drugs, medicaments and biological substances; Z79.82 Long term (current) use of aspirin; Z79.1 Long term (current) use of non-steroidal anti-inflammatories (NSAID); Z79.899 Other long term (current) drug therapy; Z87.820 Personal history of traumatic brain injury; Y92.89 Other specified places as the place of occurrence of the external cause
CPT/HCPCS: 99283

== ENCOUNTER 2022-02-02 01:13 | Emergency (ER) | payer MEDICARE, MEDICAID ==
[~2022-02-02] VITALS: Ht 162.6 cm; Wt 160.0 kg
[~2022-02-02 01:13] MED LIST changes: -DOXY100C43 PO; +HYDR50TA65 PO; -OMEP-50 PO; +OMEP20CA16 PO; -PRED20TA PO
[2022-02-02] MEDS ORDERED: normal saline 1000ml 1,000 ML IV ONE (01:35)
[2022-02-02] MEDS ORDERED: pantoprazole IV 80 MG in normal saline 100ml IV soln 100 ML IV ONE (01:35)
[2022-02-02] MEDS ORDERED: ondansetron 4mg rapidly disintigrating tab PO ONE (01:40)
[2022-02-02] MEDS: pantoprazole 40MG/NS 100ML BAG 100 ML IV SCH ×2 (02:25→03:42)
[2022-02-02 02:36] LABS: BASOPHILS # (AUTO) 0.1 X10'3 (0-0.2); BASOPHILS % (AUTO) 0.9 % (0-1); EOSINOPHILS % (AUTO) 0.3 % (0-6); HEMATOCRIT 31.2 % (35.0-45.0); HEMOGLOBIN 9.7 g/dl (12.0-16.0); LYMPHOCYTES # (AUTO) 2.8 X10'3 (1.1-4.8); LYMPHOCYTES % (AUTO) 23.2 % (21-51); MEAN CORPUSCULAR HEMOGLOBIN 21.1 PG (27.0-31.0); MEAN CORPUSCULAR HGB CONC 31.1 g/dL (33.0-36.5); MONOCYTES # (AUTO) 0.9 X10'3 (0-0.9); MONOCYTES % (AUTO) 7.6 % (2-12); NEUTROPHILS # (AUTO) 8.2 X10'3 (1.8-7.7); PLATELET COUNT 383 X10'3 (140-440); RED BLOOD COUNT 4.59 X10'6 (4.20-5.60); RED CELL DISTRIBUTION WIDTH 18.5 % (11.5-14.5)
[2022-02-02 02:41] LABS: APTT 24 SECONDS (22-32)
[2022-02-02 02:44] LABS: ALANINE AMINOTRANSFERASE 29 U/L (12-78); ALBUMIN 3.2 G/DL (3.4-5.0); ALBUMIN/GLOBULIN RATIO 0.8 (1.1-1.5); ALKALINE PHOSPHATASE 183 IU/L (46-116); ANION GAP 7 (8-16); ASPARTATE AMINO TRANSFERASE 20 U/L (10-37); BILIRUBIN,TOTAL 0.2 MG/DL (0.1-1.0); BLOOD UREA NITROGEN 10 MG/DL (7-18); BUN/CREATININE RATIO 14.9 (6.6-38.0); CALCIUM 8.8 MG/DL (8.5-10.1); CHLORIDE 104 MMOL/L (99-107); CREATININE 0.67 MG/DL (0.40-0.90); GLUCOSE 173 MG/DL (70-104); POTASSIUM 3.7 MMOL/L (3.5-5.1); SODIUM 139 MMOL/L (135-145); TOTAL CARBON DIOXIDE 27.7 MMOL/L (24-32); TOTAL PROTEIN 7.1 G/DL (6.4-8.2); eGFR 86 ML/MIN
[2022-02-02] MEDS ORDERED: famotidine/PF 10 mg/ml inj IV ONE (03:40)
[2022-02-02] MEDS ORDERED: proCHLORperazine 10 MG/2 ml inj IV ONE (04:30)
[2022-02-02] MEDS ORDERED: PANT-47 PO (04:35)
[2022-02-02] MEDS ORDERED: ONDA4TAB12 PO (04:35)
[2022-02-02 05:03] LABS: ANISOCYTOSIS 2+; PLATELET ESTIMATE NORMAL
[2022-02-02 05:04] LABS: MICROCYTOSIS 2+
[2022-02-02 05:05] LABS: ELLIPTOCYTES FEW
[2022-02-02 05:25] VITALS: BP 134/74
== END 2022-02-02 05:52 | disposition home or self-care (01) ==
LOC: ER 01:14
DX: K29.70 Gastritis, unspecified, without bleeding (principal); Z20.822 Contact with and (suspected) exposure to COVID-19; K22.6 Gastro-esophageal laceration-hemorrhage syndrome; R41.82 Altered mental status, unspecified; F03.91 Unspecified dementia, unspecified severity, with behavioral disturbance; E78.00 Pure hypercholesterolemia, unspecified; K21.9 Gastro-esophageal reflux disease without esophagitis; Z87.19 Personal history of other diseases of the digestive system; Z88.0 Allergy status to penicillin; Z88.1 Allergy status to other antibiotic agents; Z88.2 Allergy status to sulfonamides; Z88.8 Allergy status to other drugs, medicaments and biological substances; Z79.82 Long term (current) use of aspirin; Z79.899 Other long term (current) drug therapy
CPT/HCPCS: 36415; 71045; 80053; 84484; 85008; 85025; 85610; 85730; 86870; 86885; 86900; 86901; 86902; 86905; 87502; 87503; 87635; 93005; 96361; 96374; 96375; 99285; C9113; C9803; J3490; J7030; 96376; 99284